=== PATIENT | male | born 1995 | race Hispanic/Latino ===

== ENCOUNTER 2024-08-26 06:10 | Emergency (ER) | payer SELFPAY ==
[~2024-08-26] VITALS: Ht 177.8 cm; Wt 74.8 kg
[2024-08-26 06:43] LABS: BASOPHILS # (AUTO) 0.03 K/uL (0.00-0.20); BASOPHILS % (AUTO) 0.6 % (0.0-5.0); EOSINOPHILS # (AUTO) 0.02 K/uL (0.00-0.70); EOSINOPHILS % (AUTO) 0.4 % (0.0-8.0); HEMATOCRIT 41.7 % (42-54); IMMATURE GRANULOCYTE ABSOLUTE 0.05 K/uL (0-1); LYMPHOCYTES # (AUTO) 1.5 K/uL (1.0-4.8); LYMPHOCYTES % (AUTO) 28.6 % (21.0-51.0); MEAN CORPUSCULAR HGB CONC 33.3 g/dL (32.0-36.0); MEAN CORPUSCULAR VOLUME 89.9 fL (79-99); MONOCYTES # (AUTO) 0.3 K/uL (0.1-1.0); MONOCYTES % (AUTO) 5.7 % (3.0-13.0); NEUTROPHILS # (AUTO) 3.4 K/uL (1.8-7.7); NEUTROPHILS % (AUTO) 63.8 % (40.0-77.0); PLATELET COUNT (AUTO) 205 K/uL (130-400); RED BLOOD CELL COUNT(AUTO) 4.64 MIL/uL (4.50-6.20); RED CELL DISTRIBUTION WIDTH 12.5 % (11.0-15.5); WHITE BLOOD COUNT (AUTO) 5.3 K/uL (4.8-10.8)
[2024-08-26 06:44] LABS: APPEARANCE,URINE CLEAR (CLEAR); BILIRUBIN,URINE NEGATIVE (NEGATIVE); COLOR,URINE COLORLESS (YELLOW); GLUCOSE, URINE (UA) NEGATIVE (NEGATIVE); KETONES,URINE NEGATIVE (NEGATIVE); LEUKOCYTE ESTERASE ,URINE NEGATIVE Leu/uL (NEGATIVE); NITRATE,URINE NEGATIVE (NEGATIVE); OCCULT BLOOD,URINE NEGATIVE (NEGATIVE); PH,URINE 5.5 (5.0-8.0); PROTEIN,URINE NEGATIVE (NEGATIVE); UROBILINOGEN,URINE 0.2 mg/dL (0.2-1.0)
[2024-08-26 06:46] LABS: ADD UA MICROSCOPIC NO
[2024-08-26 06:52] LABS: AMPHET/METH SCREEN,URINE NEGATIVE (NEGATIVE); BARBITURATE SCREEN, URINE NEGATIVE (NEGATIVE); BENZODIAZEPINES SCREEN,URINE NEGATIVE (NEGATIVE); CANNABINOID SCREEN,URINE NEGATIVE (NEGATIVE); COCAINE SCREEN,URINE NEGATIVE (NEGATIVE); OPIATE SCREEN,URINE NEGATIVE (NEGATIVE); PHENCYCLIDINE SCREEN,URINE NEGATIVE (NEGATIVE)
[2024-08-26] MEDS: LACTATED RINGERS 1000ML 1,000 ML IV ONE (06:52)
[2024-08-26 06:57] LABS: ALBUMIN 3.3 g/dL (3.5-5.0); BILIRUBIN,TOTAL 0.2 mg/dL (0.2-1.0); POTASSIUM 3.7 mmol/L (3.5-5.1)
[2024-08-26] MEDS: LORazepam 2 MG/ML 1 ML VIAL IM ONE (07:13)
[2024-08-26] MEDS: DiphenhydrAMINE HCL 50 MG/ML VIAL IV ONE (07:13)
[2024-08-26] MEDS: HALOPERIDOL INJ 5 MG/ML VIAL IM ONE (07:54)
[2024-08-26] MEDS: leveTIRACEtam 500 MG/5 ML SD VIAL IV SCH (09:47)
[2024-08-26 14:25] VITALS: BP 96/80; PULSE 82; RESP 16; TEMP 98.4; O2SAT 95
== END 2024-08-26 15:20 | disposition left against medical advice (07) ==
LOC: EDH 06:10
DX: F10.129 Alcohol abuse with intoxication, unspecified (principal)
CPT/HCPCS: 99285; 96365; 70450; 96361; 96375; 82550; 80053; 80305; 83690; 85025; 36415; 93005; 81003; 96372 ×2; J7120; J1200; J1953; J1630; J2060